=== PATIENT | female | born 2000 | race African-American/Black ===

== ENCOUNTER 2024-03-08 22:12 | Emergency (ER) | payer OTHER, SELFPAY ==
--- NOTE | ~2024-03-08 | XR_ITS ---
XR abdomen/kub 1V Ordering provider: Regulo Man MD History: . SWALLOWED A FOREIGN BODY POSSIBLE INGESTION OF GLASS . Comparison: None. FINDINGS: BOWEL: Nonobstructive bowel gas pattern. ORGANOMEGALY: None. SIGNIFICANT PATHOLOGIC CALCIFICATIONS: None. OTHER: No free air is seen under the diaphragm. Pubic symphysitis. IMPRESSION: NO ACUTE ABDOMINAL FINDINGS. Reviewed, dictated and finalized at location A.
--- NOTE | ~2024-03-08 | XR_ITS ---
XR chest 1V Ordering provider: Regulo Man MD History: 23 years Female with . SWALLOWED A FOREIGN BODY FELLS LIKE IT IS IN THROAT (GLASS) . Comparison: None. FINDINGS: MEDIASTINUM: The cardiac silhouette is not enlarged. LUNGS: No infiltrates, effusions or pneumothorax. OTHER: No free air under the diaphragm. IMPRESSION: No acute cardiopulmonary pathology. Reviewed, dictated and finalized at location A.
[2024-03-08 22:18] VITALS: BP 149/105; PULSE 88; RESP 16; TEMP 36.2; O2SAT 98
--- NOTE | 2024-03-08 22:48 | ED.DENTAL ---
HPI - Dental/Oral General Chief complaint: Dental/Oral Stated complaint: sore throat Time Seen by Provider: 03/08/24 22:48 History of Present Illness HPI Narrative: 23 YEARS OLD FEMALE WAS EATING HER LUNCH TODAY AND A GLASS CUP GOT BROKEN ROUGHLY 1 FT AWAY FROM HER FOOD. PATIENT WAS EATING SOFT BROCCOLI AT THAT TIME, FELT SOMETHING LIKE CRUNCH THEN SWALLOW IT, SUBSEQUENTLY STARTED FEELING DISCOMFORT IN HER THROAT.. PATIENT DID NOT SEE ANY BROKEN GLASS IN HER FOOD. Related Data Home Medications Medication Instructions Recorded Confirmed No Home Medications 03/08/24 03/08/24 Allergies Allergy/AdvReac Type Severity Reaction Status Date / Time ibuprofen Allergy Swelling Verified 03/08/24 22:21 of Lip/Tongue/Throat Review of Systems Review of Systems: All systems reviewed & are unremarkable except as noted in HPI and below Exam Narrative: GENERAL APPEARANCE: WELL-DEVELOPED, WELL-NOURISHED SKIN: NORMAL COLOR HEAD: NORMOCEPHALIC, NONTRAUMATIC EYES: CLEAR CONJUNCTIVA ENT: OROPHARYNX NORMAL, EARS NORMAL, NOSE NORMAL NECK: SUPPLE, NONTENDER CHEST AND RESPIRATORY: AIRWAY PATENT, NO RESPIRATORY DISTRESS, NO ACCESSORY MUSCLE USE HEART: REGULAR RATE/RHYTHM ABDOMEN: SOFT, NONTENDER, NO ORGANOMEGALY, QUIET BOWEL SOUNDS VASCULAR: NORMAL PERIPHERAL PULSES, NORMAL CAPILLARY REFILL. MUSCULOSKELETAL: NORMAL RANGE OF MOTION, NONTENDER BACK NEUROLOGIC: ALERT AND ORIENTED ?3, NUTRITION MANAGER IS NORMAL TESTED, NO GROSS MOTOR DEFICIT Course Vital Signs Vital signs: Vital Signs Temperature 36.2 C L 03/08/24 22:18 Pulse Rate 88 03/08/24 22:18 Respiratory Rate 16 03/08/24 22:18 Blood Pressure 149/105 H 03/08/24 22:18 Pulse Oximetry 98 03/08/24 22:18 Oxygen Delivery Room Air 03/08/24 22:18 Temperature 36.2 C L 03/08/24 22:18 Pulse Rate 88 03/08/24 22:18 Respiratory Rate 16 03/08/24 22:18 Blood Pressure 149/105 H 03/08/24 22:18 Pulse Oximetry 98 03/08/24 22:18 Oxygen Delivery Room Air 03/08/24 22:18 MDM - Dental/Oral MDM Narrative Medical decision making narrative: DIFFERENTIAL DIAGNOSIS POSSIBLE SHOWING A PIECE OF GLASS WHICH IS PROBABLY VERY SMALL LESS THAN 1 CM, FALSE BELIEVE OF SWALLOWING A PIECE OF GLASS. MY PLAN TO GET X-RAY OF THE CHEST AND ABDOMEN TO RULE OUT FOREIGN BODY. PATIENT WAS TOLD THAT NO EXPECTED COMPLICATION FROM SWALLOWING A PIECE OF GLASS ON LESS IF IT WAS LARGE SIZE 1. OTHERWISE WILL COME OUT WITH HER STOOL WITHOUT ANY COMPLICATION. Differential Diagnosis Differential diagnosis: Likely other ( ABOVE) Imaging Data Radiologist's impression: CHEST X-RAY AND KUB SHOWED NO FOREIGN BODY. Critical Care Time Critical Care Time Critical Care Time: No Discharge Plan Discharge Clinical Impression: Foreign body, swallowed Patient Disposition: Home, Self-Care Condition: Stable Instructions: Foreign Body Ingestion (ED) Additional Instructions: RETURN IF SYMPTOMS ARE WORSENING , CALL YOUR FAMILY PHYSICIAN FOR APPOINTMENT, TAKE TYLENOL NEEDED FOR ACHES AND PAIN, CONTINUE HOME MEDICATIONS. Prescriptions: No Action No Home Medications Follow-up/Referrals: Tesfaye Grigsby MD [Physician] - 03/12/24 UNKNOWN,DOCTOR [Primary Care Provider] -
== END 2024-03-09 00:14 | disposition home or self-care (01) ==
LOC: ANHED 23:18
PROVIDERS: Emergency Provider Emergency Medicine
DX: T18.9XXA Foreign body of alimentary tract, part unspecified, initial encounter (principal); W44.C1XA Sharp glass entering into or through a natural orifice, initial encounter
CPT/HCPCS: 71045; 74018; 81025; 99283

== ENCOUNTER 2025-06-22 14:15 | Emergency (ER) | payer MEDICAID, SELFPAY ==
[2025-06-22 14:33] VITALS: BP 133/85; PULSE 76; RESP 16; TEMP 36.4; O2SAT 100
--- NOTE | 2025-06-22 15:00 | ED.URI ---
HPI - URI/Sore Throat General Chief Complaint: Upper Respiratory Infection Stated Complaint: COUGH/SOB/CONGESTION/WHEEZING & RASH ON FOOT Time Seen by Provider: 06/22/25 14:49 Source: patient and RN notes reviewed Mode of arrival: ambulatory Limitations: no limitations History of Present Illness HPI Narrative: 24-year-old female patient presents today complaining of a one-week history of productive cough with white sputum, nasal congestion, occasional wheezing that is worse at night. Denies fever or shortness or breath. She has tried DayQuil, NyQuil fall Zyrtec and Flonase. No history of asthma. Patient is also complaining of some athlete's foot bilaterally, left greater than right of the. She was initially treated in February at an urgent care arrived because go. In the rash has now been present for the last couple of months since she has been using the same cream please, clotrimazole-betamethasone, but has not been working. She does admit she has not been super consistent with it. Related Data Allergies Allergy/AdvReac Type Severity Reaction Status Date / Time ibuprofen Allergy Swelling Verified 06/22/25 14:36 of Lip/Tongue/Throat PMFSH Comments At time of signature, I have reviewed and agree with nursing past medical, surgical, social and family history unless otherwise noted. Please see nursing chart for further information. There is no relevant family history pertinent to the presenting complaint Exam Narrative: GENERAL: Well-appearing, well-nourished, and in no acute distress. HEAD: Normocephalic, atraumatic. EYES: EOMI. No redness or drainage. Conjunctivae normal. ENT: Mucous membranes pink and moist. Nares clear. No rhinorrhea. TMs normal bilaterally. Throat normal. Uvula midline. NECK: Normal AROM. Supple. No lymphadenopathy. CHEST: No respiratory distress. Clear to auscultation. HEART: Regular rate and rhythm. No murmur appreciated. EXTREMITIES: Normal range of motion. No edema. SKIN: Warm, dry. Capillary refill normal. Normal skin turgor. Mild flaking, peeling rash to the bilateral medial MTPs and plantar arches. NEURO: No focal deficits. Alert and oriented x3. Gait steady. PSYCH: Normal affect. No signs of depression or anxiety. Course Course Level of Care: Express Care Visit Vital Signs Vital signs: Vital Signs Temperature 97.6 F 06/22/25 14:33 Pulse Rate 76 06/22/25 14:33 Respiratory Rate 16 06/22/25 14:33 Blood Pressure 133/85 06/22/25 14:33 Pulse Oximetry 100 06/22/25 14:33 Temperature 97.6 F 06/22/25 14:33 Pulse Rate 76 06/22/25 14:33 Respiratory Rate 16 06/22/25 14:33 Blood Pressure 133/85 06/22/25 14:33 Pulse Oximetry 100 06/22/25 14:33 Reviewed MDM - URI/Sore Throat MDM Narrative Medical decision making narrative: 24-year-old female patient presents today complaining of a one-week history of productive cough with white sputum, nasal congestion, occasional wheezing that is worse at night. Denies fever or shortness or breath. She has tried DayQuil, NyQuil fall Zyrtec and Flonase. No history of asthma. Patient is also complaining of some athlete's foot bilaterally, left greater than right of the. She was initially treated in February at an urgent care arrived because go. In the rash has now been present for the last couple of months since she has been using the same cream please, clotrimazole-betamethasone, but has not been working. She does admit she has not been super consistent with it. Upon exam,Mild flaking, peeling rash to the bilateral medial MTPs and plantar arches. Will treat patient's wheezing with short burst of prednisone. Will also give her some oral fluconazole and topical ketoconazole for her athlete's foot. Patient agrees with plan. Vital signs stable. Anticipatory guidance given. Differential Diagnosis Differential diagnosis: Likely upper respiratory infection, sinusitis, viral infection, bronchitis and other (Tinea) Critical Care Time Critical Care Time Critical Care Time: No Discharge Plan Discharge Clinical Impression: Upper respiratory infection Qualifiers: URI type: unspecified URI Qualified Code(s): J06.9 - Acute upper respiratory infection, unspecified Tinea pedis Qualifiers: Laterality: bilateral Qualified Code(s): B35.3 - Tinea pedis Patient Disposition: Home Condition: Stable Instructions: Upper Respiratory Infection (DC), Skin Yeast Infection (ED) Additional Instructions: Take all prescribed medications as directed. Try to be consistent with the ketoconazole as it will be more effective this way. Follow-up with your PCP in 1 week if symptoms are not improving. Go to the ER immediately if symptoms become worse such as: you become short of breath or you wheezing worsens or you develop a new fever greater than 100.3. Patient Language: Polish Prescriptions: New prednisone 20 mg tablet 40 mg PO DAILY 5 Days Qty: 10 0RF fluconazole 150 mg tablet 150 mg PO WEEKLY 21 Days Qty: 3 0RF ketoconazole 2 % cream 1 applic topical DAILY Qty: 30 0RF Follow-up/Referrals: PHYSICIAN,DIRECTOR [employer] DEVELOPMENT [Primary Care Provider, Internal Medicine] Time of Disposition: 15:07
== END 2025-06-22 15:15 | disposition home or self-care (01) ==
PROVIDERS: Emergency Provider Nurse Practitioner
DX: J06.9 Acute upper respiratory infection, unspecified (principal); B35.3 Tinea pedis
CPT/HCPCS: 99213; G0463